=== PATIENT | female | born 1945 | race Caucasian/White ===

== ENCOUNTER → 2021-04-15 14:44 | Outpatient (BNVA) | payer MEDICARE, OTHER, SELFPAY | PROVIDERS: PCP Internal Medicine; Visit Provider Surgery Vascular Surgery | DX: I83.11 Varicose veins of right lower extremity with inflammation (principal) | CPT/HCPCS: 99212 ==

== ENCOUNTER 2021-05-03 07:59 | Outpatient (REF) | payer MEDICARE, OTHER, SELFPAY ==
--- NOTE | ~2021-05-03 | US_ITS ---
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 History of prior left great saphenous vein stripping. COMPARISON: 12/11/2018 TECHNIQUE: Color flow triplex imaging and compression Doppler was performed to evaluate both the deep and the superficial systems bilaterally. To evaluate the superficial system, the examination was performed in the upright position. Color-flow Doppler ultrasound and compression ultrasound were utilized. In addition, maneuvers were utilized to demonstrate reflux. FINDINGS: 1. DEEP VENOUS ULTRASOUND OF THE RIGHT LOWER EXTREMITY: Common Femoral Vein: Compressible, normal respiratory variation and augmented flow. Femoral vein: Compressible, normal color flow and augmentation. Popliteal Vein: Compressible, normal augmentation. Deep Reflux: There is reflux throughout the deep system measuring up to 3.3 seconds within the common femoral vein. There is no evidence of a Collier's cyst. 2. SUPERFICIAL ULTRASOUND WITH DOPPLER OF RIGHT LOWER EXTREMITY GREAT SAPHENOUS VEIN: The great saphenous vein ranges in size from 3 mm at the ankle to 4 mm at the saphenofemoral junction. There is segmental reflux above the knee measuring greater than 1 second and at the mid calf measuring greater than 2.3 seconds. DUPLICATED GREAT SAPHENOUS VEIN: Medial, 0.4 cm, no reflux SMALL SAPHENOUS VEIN: Saphenopopliteal junction: 1.1 cm; greater than 3 seconds Mid calf: 0.6 cm; greater than 1.9 seconds Distal calf: 0.4 cm; greater than 2.6 seconds VEIN OF GIACOMINI: None Imaged. PERFORATORS: None Imaged VARICOSITIES: [place], 0.6 cm, greater than 3 seconds of reflux Proximal calf, 0.4 cm, no reflux Proximal calf, 0.5 cm, greater than 3 seconds of reflux Distal calf, 0.5 cm, greater than 2.7 seconds of reflux ADDITIONAL: Within the right groin is a 2.4 x 3.7 x 0.9 cm fluid collection adjacent to the saphenofemoral junction: 3. DEEP VENOUS ULTRASOUND OF THE LEFT LOWER EXTREMITY: Common Femoral Vein: Compressible, normal respiratory variation and augmented flow. Femoral vein: Compressible, normal color flow and augmentation. Popliteal Vein: Compressible, normal augmentation. Deep Reflux: There is greater than 1.4 seconds of reflux within the mid femoral vein. There is no evidence of a Collier's cyst. 4. SUPERFICIAL ULTRASOUND WITH DOPPLER OF LEFT LOWER EXTREMITY GREAT SAPHENOUS VEIN: Left great saphenous vein is not visualized consistent with prior treatment. DUPLICATED GREAT SAPHENOUS VEIN: None SMALL SAPHENOUS VEIN: Saphenopopliteal junction: 0.2 cm; No evidence of reflux. Mid calf: 0.2 cm; No evidence of reflux. VEIN OF GIACOMINI: None Imaged. PERFORATORS: [place], 0.3 cm, greater than 1.1 seconds of reflux VARICOSITIES: [place], 0.8 cm, greater than 3 seconds of reflux Proximal calf, 0.4 cm, no reflux Distal calf, 0.3 cm, greater than 1.1 seconds of reflux [place], 0.2 cm, greater than 1.2 seconds of reflux ADDITIONAL: Similar to the contralateral groin is a 3.6 x 2.8 x 0.8 cm cyst versus fluid collection within the proximal thigh. This is slightly increased in size from 2019 when it measured 2.5 x 0.7 x 1.5 cm. US/US venous duplex LE BI IMPRESSION: 1. Segmental insufficiency within the right great saphenous vein above the knee and at the mid calf. 2. Venous insufficiency throughout the right small saphenous vein. 3. Bilateral refluxing varicosities. 4. Deep venous insufficiency throughout the right lower extremity as well as insufficiency involving the left mid femoral vein. 5. A cystic structure in the right groin is similar in appearance but slightly increased in size from 2019. A similar-appearing cystic structure within the left groin is newly appreciated from the prior examination.
== END 2021-05-03 08:00 | disposition home or self-care (01) ==
LOC: HO.US 07:59
PROVIDERS: PCP Internal Medicine; Visit Provider Surgery Vascular Surgery
DX: I83.11 Varicose veins of right lower extremity with inflammation (principal)
CPT/HCPCS: 93970

== ENCOUNTER → 2021-05-25 10:51 | Outpatient (BNVA) | payer MEDICARE, OTHER, SELFPAY | PROVIDERS: PCP Internal Medicine; Visit Provider Surgery Vascular Surgery | DX: I83.11 Varicose veins of right lower extremity with inflammation (principal); I80.8 Phlebitis and thrombophlebitis of other sites; Z79.02 Long term (current) use of antithrombotics/antiplatelets | CPT/HCPCS: 99212 ==

== ENCOUNTER → 2021-06-11 07:35 | Outpatient (BNVA) | payer MEDICARE, OTHER, SELFPAY | PROVIDERS: PCP Internal Medicine; Visit Provider Surgery Vascular Surgery | DX: I83.11 Varicose veins of right lower extremity with inflammation (principal) | CPT/HCPCS: 36475 ==

== ENCOUNTER 2021-06-14 08:59 | Outpatient (REF) | payer MEDICARE, OTHER, SELFPAY ==
--- NOTE | ~2021-06-14 | US_ITS ---
EXAMINATION: US VENOUS ULTRASOUND WITH DOPPLER LOWER EXTREMITY, RIGHT CLINICAL INFORMATION: Status post right leg RFA. COMPARISON: None TECHNIQUE: Ultrasound of the deep veins is performed from the hip to the calf with compression sonography and color and pulse Doppler assessment. Spectral analysis with color-flow imaging is performed. FINDINGS: There is normal venous compression and respiratory variation and augmented flow. The visualized common femoral vein, superficial femoral vein, profunda femoral vein, popliteal vein, and the trifurcation region shows no evidence of deep venous thrombosis. There is no significant popliteal fossa cyst. There is a clot seen within right short saphenous vein extending to the popliteal venous junction from recent intervention. Incidental finding of anechoic area in the right groin likely a cyst. It measures 4.2 x 1.3 x 2.6 cm. Previously it measured 2.4 x 3.7 x 0.9 cm US/US venous duplex LE RT IMPRESSION: No DVT demonstrated in the right lower extremity.. There is a clot visualized in chart saphenous vein extending to the popliteal vein junction, following recent intervention. Right groin cystic areas measures 4.2 cm. Previously it measured 3.7 cm in maximum dimension
== END 2021-06-14 09:00 | disposition home or self-care (01) ==
LOC: HO.US 08:59
PROVIDERS: PCP Internal Medicine; Visit Provider Surgery Vascular Surgery
DX: M79.604 Pain in right leg (principal)
CPT/HCPCS: 93971

== ENCOUNTER → 2021-06-22 14:16 | Outpatient (BNVA) | payer MEDICARE, OTHER, SELFPAY | PROVIDERS: PCP Internal Medicine; Visit Provider Surgery Vascular Surgery | DX: I83.11 Varicose veins of right lower extremity with inflammation (principal) | CPT/HCPCS: 99212 ==